=== PATIENT | female | born 1995 | race Hispanic/Latino ===

== ENCOUNTER 2017-12-27 07:08 | Day surgery (SDC) | payer MEDICAID ==
[2017-12-25 13:47] VITALS: BP 95/63
[2017-12-25 13:48] LABS: BASOPHILS % (AUTO) 0.6 % (0.0-5.0); EOSINOPHILS % (AUTO) 1.6 % (0.0-8.0); LYMPHOCYTES % (AUTO) 32.3 % (21.0-51.0); MEAN CORPUSCULAR HEMOGLOBIN 25.8 pg (27.0-33.0); MEAN CORPUSCULAR HGB CONC 32.2 g/dL (32.0-36.0); MEAN CORPUSCULAR VOLUME 80.3 fL (79-99); MONOCYTES % (AUTO) 8.6 % (3.0-13.0); NEUTROPHILS % (AUTO) 56.9 % (40.0-77.0); PLATELET COUNT (AUTO) 279 K/uL (130-400); RED BLOOD CELL COUNT(AUTO) 4.97 MIL/uL (4.00-5.50); RED CELL DISTRIBUTION WIDTH 20.8 % (11.0-15.5); WHITE BLOOD COUNT (AUTO) 6.2 K/uL (4.8-10.8)
[2017-12-27] VITALS (16 sets, daily range): BP systolic 93–118; BP diastolic 52–76
[~2017-12-27] VITALS: Ht 167.6 cm; Wt 99.2 kg
[~2017-12-27 07:08] MED LIST: CALDOLOR 800MG+NS 250ML 250 ML IV SCH
[2017-12-27] MEDS ORDERED: DiphenhydrAMINE HCL 50 MG/ML VIAL ONE (07:18)
[2017-12-27] MEDS ORDERED: LIDOCAINE PF 2% 5ML ABBOJECT ONE (07:18)
[2017-12-27] MEDS ORDERED: MIDAZOLAM HCL 1 MG/ML 2ML VIAL ONE (07:18)
[2017-12-27] MEDS ORDERED: GLYCOPYRROLATE 1 MG/5 ML SYRINGE ONE (07:18)
[2017-12-27] MEDS ORDERED: NEOSTIGMINE 5MG/5ML SYR IV ONE (07:18)
[2017-12-27] MEDS ORDERED: ONDANSETRON HCL 4 MG/2 ML VIAL ONE ×2 (07:18→09:19)
[2017-12-27] MEDS ORDERED: PROPOFOL 10 MG/ML 20ML VIAL IV ONE (07:18)
[2017-12-27] MEDS ORDERED: FENTANYL CITRATE PF 50 MCG/1 ML 2ML VIAL ONE (07:19)
[2017-12-27] MEDS ORDERED: ROCURONIUM 10MG/1ML SYR 10 MG/ML ML ONE (07:19)
[2017-12-27] MEDS ORDERED: DEXAMETHASONE SOD PHOSPHATE 10MG/ML 1ML VIAL ONE (07:19)
[2017-12-27] MEDS ORDERED: ESMOLOL HCL 10 MG/ML 10 ML VIAL ONE (07:21)
[2017-12-27] MEDS ORDERED: FAMOTIDINE/PF 20 MG/2 ML VIAL IV ONE (07:29)
[2017-12-27] MEDS ORDERED: ACETAMINOPHEN EXTRA STRENGTH 500 MG TABLET ONE (07:30)
[2017-12-27] MEDS ORDERED: LACTATED RINGERS 1000ML 1,000 ML IV ONE (07:33)
[2017-12-27] MEDS ORDERED: BUPIVACAINE/PF 0.25% 30ML VIAL IJ ONE (08:36)
== END 2017-12-27 11:32 | disposition home or self-care (01) ==
LOC: DAH 07:08
DX: Z30.2 Encounter for sterilization (principal); N83.8 Other noninflammatory disorders of ovary, fallopian tube and broad ligament
CPT/HCPCS: 36415; 58670; 84702; 85025; A4215; A4351; A4600; C1769 ×2; J1100; J1200; J1741; J2001; J2250; J2405 ×2; J2704; J2710; J3490 ×4; J7040; J7120; J3010

== ENCOUNTER 2019-01-17 01:51 | Emergency (ER) | payer MEDICAID, OTHER | END 2019-01-17 02:41 | disposition home or self-care (01) | LOC: EDH 01:51 | DX: S76.011A Strain of muscle, fascia and tendon of right hip, initial encounter (principal); X50.0XXA Overexertion from strenuous movement or load, initial encounter; Y93.89 Activity, other specified; Y92.89 Other specified places as the place of occurrence of the external cause; Y99.8 Other external cause status ==

== ENCOUNTER 2024-03-23 04:50 | Emergency (ER) | payer BC ==
[~2024-03-23] VITALS: Ht 172.7 cm; Wt 113.4 kg
[2024-03-23 05:25] VITALS: TEMP 103
[2024-03-23] MEDS: 0.9%NACL 1000ML 1,000 ML IV ONE (05:25)
[2024-03-23] MEDS: acetaMINOPHEN 500 MG TABLET PO ONE (05:25)
[2024-03-23 05:30] LABS: BASOPHILS # (AUTO) 0.01 K/uL (0.00-0.20); BASOPHILS % (AUTO) 0.1 % (0.0-5.0); IMMATURE GRANULOCYTE ABSOLUTE 0.06 K/uL (0-1); LYMPHOCYTES # (AUTO) 0.8 K/uL (1.0-4.8); LYMPHOCYTES % (AUTO) 6.5 % (21.0-51.0); MEAN CORPUSCULAR HEMOGLOBIN 29.1 pg (27.0-33.0); MEAN CORPUSCULAR HGB CONC 34.3 g/dL (32.0-36.0); MEAN CORPUSCULAR VOLUME 85.1 fL (79-99); MONOCYTES # (AUTO) 0.6 K/uL (0.1-1.0); MONOCYTES % (AUTO) 5.3 % (3.0-13.0); NEUTROPHILS # (AUTO) 10.1 K/uL (1.8-7.7); NEUTROPHILS % (AUTO) 87.6 % (40.0-77.0); PLATELET COUNT (AUTO) 261 K/uL (130-400); RED CELL DISTRIBUTION WIDTH 12.8 % (11.0-15.5); WHITE BLOOD COUNT (AUTO) 11.5 K/uL (4.8-10.8)
[2024-03-23 05:30] LABS: RAPID GROUP A STREP negative (NEGATIVE)
[2024-03-23 05:36] LABS: SARS-CoV-2, RNA, NAAT NEGATIVE SARS CoV-2 (NEGATIVE)
[2024-03-23 05:40] LABS: INFLUENZA TYPE B Negative For Type B (NEGATIVE)
[2024-03-23 05:46] LABS: CREATININE 0.8 mg/dL (0.5-1.0); POTASSIUM 3.7 mmol/L (3.5-5.1)
[2024-03-23] MEDS: cefTRIAXone 1G VIAL IVPB ONE (05:47)
[2024-03-23 05:50] LABS: INFLUENZA TYPE A Positive For Type A (NEGATIVE)
[2024-03-23 05:51] LABS: APPEARANCE,URINE CLEAR (CLEAR); BILIRUBIN,URINE NEGATIVE (NEGATIVE); COLOR,URINE YELLOW (YELLOW); GLUCOSE, URINE (UA) NEGATIVE (NEGATIVE); KETONES,URINE NEGATIVE (NEGATIVE); LEUKOCYTE ESTERASE ,URINE NEGATIVE Leu/uL (NEGATIVE); NITRATE,URINE NEGATIVE (NEGATIVE); OCCULT BLOOD,URINE LARGE (NEGATIVE); PROTEIN,URINE 10 mg/dL (NEGATIVE); UROBILINOGEN,URINE 0.2 mg/dL (0.2-1.0)
--- NOTE | 2024-03-23 05:53 | ERN ---
General Chief Complaint: Flu Symptoms Stated Complaint: FLU SYMPTOMS Time Seen by MD: 04:56 Time Seen by Midlevel: 04:56 Source: patient History of Present Illness Initial Comments Patient is a 28 year old female presenting to the emergency department with flu- like symptoms that have been ongoing for the last month. Symptoms consist of cough, congestion, and fever. No other symptoms reported at this time. Allergies: Coded Allergies: No Known Allergies (Unverified Allergy, Unknown, 11/09/17) Home Meds No Active Prescriptions or Reported Meds Past Medical History Past Medical History: No Pertinent History Past Surgical History: None Female( History) LMP: Feb 23, 2024 ROS Dictation CONSTITUTIONAL: Negative except for HPI HEAD/FACE: Negative except for HPI EENT: Negative except for HPI RESPIRATORY: Negative except for HPI GASTROINTESTINAL/ABDOMINAL: Negative except for HPI GENITOURINARY: Negative except for HPI MUSCULOSKELETAL: Negative except for HPI INTEGUMENTARY: Negative except for HPI NEUROLOGICAL/PSYCH: Negative except for HPI HEMATOLOGIC/LYMPHATIC: Negative except for HPI All Systems Negative, Except as noted above. 13 point review of systems assessed and all negative except for above. Physical Exam Physical Exam Dictation Vital Signs reviewed General Appearance: Alert, oriented x 3, no acute distress, well developed, nourished. Head and Face: non-traumatic. Eyes: PERRL, pink conjunctivas, eyelid no trauma, anterior chamber with arcus senilis. Ears: Pinnas intact and no signs of trauma or erythema ear canals clear and no discharge TM no erythema Nose: No discharge, no bleeding. Oropharynx: Mouth normal, tongue pink, pharynx clear,no erythema, tonsils no exudates, no abscesses noted, mucous membrane moist Neck: Supple, non-tender, no thyromegaly, no masses, no JVD, no bruits Breast:Deferred Chest:No tenderness, no crepitus, no paradoxical movement, no retractions Lungs:Clear, well-ventilated, symmetric, no rales, no wheezing, no rhonchi, no stridor, good breath sounds bilaterally Heart: Regular rate, regular rhythm, no murmur, no gallops Vascular: no peripheral edema, Abdomen: Soft, positive bowel sounds, nondistended, no guarding, nontender, no rebound, no masses no hepatomegaly, no splenomegaly, no Reyes's sign, no hernias. Rectal: Deferred Genital: Deferred Neurological: Normal speech, motor function intact, sensory function intact Musculoskeletal: Neck nontender, full range of motion, back nontender, full range of motion, Extremities: nontender, full range of motion Skin: Color pink, dry, no turgor, no rash, no lacerations, no abrasions, no contusions. Lymphatic: Deferred Results Laboratory and Microbiology Lab and Micro Result Laboratory Tests Test 03/23/24 05:06 03/23/24 05:16 03/23/24 05:34 Influenza Type A Antigen Positive For Type A Influenza Type B Antigen Negative For Type B SARS-CoV-2, RNA, NAAT NEGATIVE SARS CoV-2 Group A Streptococcus Rapid negative (NEGATIVE) White Blood Count 11.5 K/uL (4.8-10.8) H Red Blood Count 4.70 MIL/uL (4.00-5.50) Hemoglobin 13.7 g/dL (12.0-16.0) Hematocrit 40.0 % (36-48) Mean Corpuscular Volume 85.1 fL (79-99) Mean Corpuscular Hemoglobin 29.1 pg (27.0-33.0) Mean Corpuscular Hemoglobin Concent 34.3 g/dL (32.0-36.0) Red Cell Distribution Width 12.8 % (11.0-15.5) Platelet Count 261 K/uL (130-400) Mean Platelet Volume 9.2 fL (7.5-10.5) Immature Granulocyte % (Auto) 0.5 % (0-1) Neutrophils (%) (Auto) 87.6 % (40.0-77.0) H Lymphocytes (%) (Auto) 6.5 % (21.0-51.0) L Monocytes (%) (Auto) 5.3 % (3.0-13.0) Eosinophils (%) (Auto) 0.0 % (0.0-8.0) Basophils (%) (Auto) 0.1 % (0.0-5.0) Neutrophils # (Auto) 10.1 K/uL (1.8-7.7) H Lymphocytes # (Auto) 0.8 K/uL (1.0-4.8) L Monocytes # (Auto) 0.6 K/uL (0.1-1.0) Eosinophils # (Auto) 0.00 K/uL (0.00-0.70) Basophils # (Auto) 0.01 K/uL (0.00-0.20) Absolute Immature Granulocyte (auto 0.06 K/uL (0-1) Nucleated Red Blood Cells 0.0 % (0.0-0.19) Sodium Level 138 mmol/L (136-145) Potassium Level 3.7 mmol/L (3.5-5.1) Chloride Level 102 mmol/L (101-111) Carbon Dioxide Level 26 mmol/L (21-32) Blood Urea Nitrogen 8 mg/dL (7-18) Creatinine 0.8 mg/dL (0.5-1.0) Glomerular Filtration Rate Calc 102 mL/min (>90) Random Glucose 117 mg/dL (70-105) H Lactic Acid Level 1.5 mmol/L (0.8-2.5) Total Calcium 8.4 mg/dL (8.5-10.1) L Serum Test, Qualitative NEGATIVE (NEGATIVE) Urine Color YELLOW (YELLOW) Urine Appearance CLEAR (CLEAR) Urine pH 6.0 (5.0-8.0) Urine Specific [place] 1.023 (1.001-1.031) Urine Protein 10 mg/dL (NEGATIVE) H Urine Glucose (UA) NEGATIVE mg/dL (NEGATIVE) Urine Ketones NEGATIVE mg/dL (NEGATIVE) Urine Occult Blood LARGE (NEGATIVE) H Urine Nitrate NEGATIVE (NEGATIVE) Urine Bilirubin NEGATIVE mg/dL (NEGATIVE) Urine Urobilinogen 0.2 mg/dL (0.2-1.0) Urine Leukocyte Esterase NEGATIVE Jonny/uL Labs Reviewed?: Yes MDM MDM: Differential diagnosis: Pneumonia, sepsis, viral syndrome, upper respiratory infection, strep, urinary tract infection There are no social concerns with this patient. Prescription drug management Prescriptions will include: Tamiflu and azithromycin and Medrol pack Medical management and examination interpretation discussions were had by me with other qualified healthcare professionals as indicated for the patient's care. ED Course Orders Procedure Category Date Status Time 12 Lead Ekg Tracing- EKG 03/23/24 Logged Technical 05:02 Cbc With Differential LAB 03/23/24 In Process 05:02 Basic Metabolic Panel LAB 03/23/24 Complete 05:02 Lactic Acid LAB 03/23/24 Complete 05:02 Covid Rna Naat LAB 03/23/24 Complete 05:02 Influenza Type A & B, LAB 03/23/24 Complete Rapid 05:02 Rapid (Group A Strep) LAB 03/23/24 Complete 05:02 Procalcitonin LAB 03/23/24 In Process 05:02 Testing, LAB 03/23/24 In Process Serum Hcg 05:02 Urinalysis Profile LAB 03/23/24 In Process 05:02 Chest 1vw RAD 03/23/24 Taken 05:02 Blood Cult ALMA 03/23/24 In Process 05:02 Acetaminophen 500mg PHA 03/23/24 Complete Tab (Tylenol 500mg T 05:30 0.9%Nacl 1000ml (Ns PHA 03/23/24 Complete 1000ml) 05:30 Ceftriaxone 1g Vial PHA 03/23/24 In Process (Rocephine 1g Inj) 06:00 Ipratropium/Albuterol PHA 03/23/24 In Process Neb (Duoneb) 06:00 Methylprednisolone PHA 03/23/24 In Process Succ 125mg (Solu-Medr 06:00 Current Medications Medications (Trade) Dose Ordered Sig/Kasia Route PRN Reason Start Time Stop Time Status Last Admin Dose Admin Acetaminophen (TYLenol 500MG TAB) 1,000 mg ONCE ONCE PO 03/23/24 05:30 03/23/24 05:31 DC 03/23/24 05:25 Albuterol (DUOneb) 1 UDVIAL ONCE ONCE IH 03/23/24 06:00 03/23/24 06:01 Ceftriaxone Sodium (ROCEphine 1G INJ) 1 gm ONCE ONCE IVPB 03/23/24 06:00 03/23/24 06:01 03/23/24 05:47 Methylprednisolone Sodium Succinate (Solu-medROL 125MG) 125 mg ONCE ONCE IVP 03/23/24 06:00 03/23/24 06:01 Sodium Chloride 1,000 ml @ 0 mls/hr ONCE ONCE IV 03/23/24 05:30 03/23/24 05:31 DC 03/23/24 05:25 Vital Signs Date Time Temp Pulse Resp B/P (MAP) Pulse Ox O2 Delivery O2 Flow Rate FiO2 03/23/24 05:25 102.9 03/23/24 05:08 102.9 125 22 102/62 95 Room Air* 0 21 03/23/24 05:02 102.9 130 17 112/70 95 Room Air 0 DX & DISP Disposition: Discharge Departure Impression: Primary Impression: Influenza A Additional Impression: Pneumonitis Condition: Stable Scripts Azithromycin (Azithromycin) 250 Mg Tablet 1 TAB PO AD for 5 Days, #6 TAB 0 Refills 2 the first day followed by 1 for days 2-5 Prov: JUAN GODDARD 03/23/24 Oseltamivir Phosphate (Tamiflu) 75 Mg Cap 75 MG PO BID for 5 Days, #10 CAP Prov: JUAN GODDARD 03/23/24 Methylprednisolone (Medrol) 4 Mg Tab.ds.pk 1 TAB PO AD for 6 Days, #21 TAB 0 Refills 6 on day 1 then reduce by one tablet daily until gone Prov: JUAN GODDARD 03/23/24 Additional Instructions: Your blood work today is stable. You have tested positive for influenza A. Your chest x-ray shows pulmonary congestion consistent with pneumonitis. I have given you a prescription for Tamiflu and oral antibiotics for outpatient management. You may take Tylenol or Motrin for fever as needed. Follow up with your primary care doctor in 2-3 days for repeat evaluation. Return to the ER for any new or worsening symptoms. Referrals: SELF,REFERRAL (PCP) I have reviewed the case, and I agree with, Diagnosis and Plan I performed the substantive portion of the visit. I have reviewed and personally made and approve the management plan that is documented in the note by myself or the BRIE. I acknowledge for responsibility for the patient's management plan. JUAN GODDARD Mar 23, 2024 05:53
[2024-03-23 05:56] LABS: ADD UA MICROSCOPIC YES
[2024-03-23 05:58] LABS: MUCUS,URINE RARE LPF (None Seen); RBC,URINE 51-100 /HPF (0-1); SQUAMOUS EPITHELIAL CELL,UR FEW /HPF (0-2)
[2024-03-23] MEDS ORDERED: OSEL75 PO (06:00)
[2024-03-23] MEDS ORDERED: METH4TAB3 PO (06:00)
[2024-03-23] MEDS ORDERED: AZIT250T9 PO (06:00)
[2024-03-23] MEDS: Solu-medROL 125MG VIAL IVP ONE (06:09)
[2024-03-23] MEDS: IpraTROPium/alBUTERol SULFATE 3 ML SOLUTION IH ONE (06:36)
[2024-03-23 06:38] VITALS: PULSE 100; RESP 18
[2024-03-23 07:47] VITALS: BP 103/55; PULSE 100; RESP 18; TEMP 98.2; O2SAT 95
--- NOTE | 2024-03-23 08:20 | HMCIMG ---
PORTABLE CHEST RADIOGRAPH INDICATION: sob COMPARISON: None FINDINGS: Heart size is normal. The pulmonary vascularity and sam appear normal. Bibasilar lung linear opacities without consolidation. No significant pleural effusion noted. No pneumothorax detected. IMPRESSION: Bibasilar atelectasis.
--- NOTE | 2024-03-23 16:20 | EKG ---
[facility] Test Date: 2024-03-23 Test Time: 04:59:31 Pat Name: EVA OSPINA Department: ED Room: Gender: F Care Management Assistant: [id number] : 1995 Requested By: JUAN GODDARD Order Number: [id number] Reading MD: Pedro Lynn Measurements Intervals [place] Rate: 125 P: 62 MA: 146 QRS: -45 QRSD: 95 T: 44 QT: 313 QTc: 452 Interpretive Statements Sinus tachycardia Probable left atrial enlargement Left anterior fascicular block Low voltage, precordial leads No previous ECG available for comparison Electronically Signed On 03-23-2024 16:48:29 [employer] by Pedro Lynn Please click the below link to view image of tracing.
== END 2024-03-23 08:04 | disposition home or self-care (01) ==
LOC: EDH 04:50
DX: J10.1 Influenza due to other identified influenza virus with other respiratory manifestations (principal); J98.4 Other disorders of lung; Z20.822 Contact with and (suspected) exposure to COVID-19
CPT/HCPCS: 99284; 96374; 71045; 87635; 96375; 80048; 84703; 85025; 87040 ×2; 87880; 87804 ×2; 83605; 81001; 36415; 93005; 94640; 84145; J7030; J2919; J0696